=== PATIENT | male | born 1935 | race Caucasian/White ===

== ENCOUNTER 2017-05-21 17:58 | Emergency (ER) | payer MEDICARE ==
[~2017-05-21] VITALS: Wt 63.5 kg
--- NOTE | ~2017-05-21 | EKG ---
[place], [place] ELECTROCARDIOGRAM REPORT NAME: WILDER BERNARD JR UNIT #: [id number] ROOM: DOCTOR: SILVIA CHAVARRIA MD BIRTHDATE: [birth year] DOS: 05/21/2017 TIME: 1958 hours. FINDINGS: 1. Normal sinus rhythm at 68 beats per minute. 2. Consider left atrial abnormality. 3. Complete left bundle-branch block is likely. 4. Marked left axis deviation. 5. An abnormal ECG. 6. No previous tracing is available for comparison. SILVIA CHAVARRIA MD CM:EKGRPT:ELECTROCARDIOGRAM REPORT [id number] 1201 SILVIA CHAVARRIA MD
[2017-05-21] MEDS ORDERED: CELEXA20 MG PO (18:51)
[2017-05-21] MEDS ORDERED: AMIODARONE HYD200 MG PO (18:51)
[2017-05-21] MEDS ORDERED: LACTULOSE10 GM/154 PO (18:52)
[2017-05-21] MEDS ORDERED: VITAMIN D5000 UNI1 PO (18:52)
[2017-05-21] MEDS ORDERED: RIVASTIGMINE TAR3 M1 PO (18:52)
[2017-05-21] MEDS ORDERED: METOPROLOL SUCC25 M2 PO (18:53)
[2017-05-21] MEDS ORDERED: TYLENOL EXTRA500 MG PO (18:53)
[2017-05-21 19:45] LABS: BASO % 0.4 % (0.0-1.0); EOS # 0.1 10*3/uL (0.0-0.4); EOS % 0.9 % (1.0-4.0); HEMATOCRIT 42.8 % (42.0-52.0); HEMOGLOBIN 13.8 g/dl (14.0-18.0); LYMPH # 1.9 10*3/uL (1.3-4.4); LYMPH % 25.4 % (27.0-41.0); MEAN CELL VOLUME 102.4 fl (80.0-94.0); MEAN CORPUSCULAR HGB CONC 32.2 g/dl (33.0-37.0); MEAN PLATELET VOLUME 9.8 fl (9.6-12.3); MONO # 0.7 10*3/uL (0.1-1.0); MONO % 8.8 % (3.0-9.0); NEUT # 4.9 10*3/uL (2.3-7.9); NEUT % 64.4 % (47.0-73.0); PLATELET COUNT AUTOMATED 203 10*3/uL (130-400); RED BLOOD COUNT 4.18 10*6/uL (4.50-5.90); RED CELL DISTRI WIDTH 13.2 % (0-14.5); WHITE BLOOD COUNT 7.6 10*3/uL (4.8-10.8)
[2017-05-21 20:01] LABS: ALBUMIN 3.8 gm/dl (3.1-4.5); ALKALINE PHOSPHATASE 90 U/L (45-117); BUN 9 mg/dl (7-24); CHLORIDE 104 mmol/L (98-107); CREATININE 1.17 mg/dL (0.70-1.30); POTASSIUM 4.3 mmol/L (3.5-5.1); SGOT/AST 17 IU/L (3-35); SGPT/ALT 16 U/L (12-78); SODIUM 138 mmol/L (136-145); TOTAL PROTEIN 7.4 gm/dL (6.4-8.2)
[2017-05-21 20:06] LABS: ACETAMINOPHEN (TYLENOL) < 2.0 ug/ml (10-30)
[2017-05-21 20:14] LABS: ETHYL ALCOHOL < 3.0 mg/dl (<3)
[2017-05-21 21:10] LABS: BILIRUBIN NEGATIVE (NEGATIVE); BLOOD 1+ (NEGATIVE); CLARITY CLEAR (CLEAR); COLOR YELLOW (YELLOW); GLUCOSE NEGATIVE (NEGATIVE); KETONE NEGATIVE (NEGATIVE); LEUKO ESTERASE NEGATIVE (NEGATIVE); NITRITE NEGATIVE (NEGATIVE); UROBILINOGEN 0.2 E.U./dl (0.2-1.0)
[2017-05-21 21:16] LABS: BACTERIA TRACE
[2017-05-21 21:20] LABS: URINE AMPHETAMINES < 1000 (1000ng/ml); URINE BARBITURATES < 200 (200ng/ml); URINE BENZODIAZEPINES < 200 (200ng/ml); URINE CANNABINOIDS (THC) < 50 (50ng/ml); URINE COCAINE < 300 (300ng/ml); URINE METHADONE < 300 (300ng/ml); URINE OPIATES < 300 (300ng/ml)
[2017-05-21 21:25] LABS: URINE PHENCYCLIDINE < 25 (25ng/ml)
[2017-05-21] MEDS ORDERED: OXYGEN NAS (21:49)
== END 2017-05-21 22:23 | disposition home health service (06) ==
LOC: ED 17:58
PROVIDERS: Physician Assistant
DX: F23 Brief psychotic disorder (principal); F03.90 Unspecified dementia, unspecified severity, without behavioral disturbance, psychotic disturbance, mood disturbance, and anxiety; Z79.899 Other long term (current) drug therapy

== ENCOUNTER 2017-05-21 21:31 | Inpatient (IN) | payer MEDICARE ==
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
--- NOTE | ~2017-05-21 | PR ---
[place], [place] PROGRESS NOTE NAME: WILDER BERNARD JR UNIT #: [id number] ROOM: 316 DOCTOR: SANGITA BRYANT MD BIRTHDATE: [birth year] DOS: 05/23/2017 CHIEF COMPLAINT: "Are you the house detective." SUMMARY OF THE VISIT: The patient was interviewed as he was eating his breakfast in the dining area. He was very pleasant upon approach. He spoke at times nonsensical and rambled and other times, he was very clear. He was cooperative. Later, I went back when the lab techs were here to draw his blood and he cooperated pretty well with them as they attempted to draw blood. He was not agitated or aggressive this morning. He has tolerated the Invega well. MENTAL STATUS: He is alert and oriented to person, possibly place, although doubtful, certainly not time. Mood does seem to be more euthymic. Affect is more appropriate. There is no adina or hypomania. He does process extremely slowly and short term memory is extremely poor. PLAN: Given the fact that he is tolerating the Invega well, I will load with Invega Sustenna 234 mg IM now, reload with 156 mg on 05/26/2017, engage in individual and lazo milieu activity, returning to the least restrictive environment when psychiatrically stable. SANGITA BRYANT MD CM:PNTRANS SANGITA BRYANT MD 05/23/1747 interface
--- NOTE | ~2017-05-21 | PR ---
[place], [place] PROGRESS NOTE NAME: WILDER BERNARD JR [facility] #: [id number] UNIT #: [id number] ROOM: 316 DOCTOR: JOSELYN PORTER MD BIRTHDATE: [birth year] DOS: 05/25/2017 SUBJECTIVE: The patient seen and I spoke with the staff. Per staff, the patient is doing well. No behavioral problems or issues. He took his medication last night, slept well. No resistance in care. The patient was pleasant, cooperative. He was in the day area. He waved at me when he saw me. He reports doing well. He said that he is taking his medication regularly and did not have any side effect. He reports good sleep and appetite. He denied being depressed or sad. He wanted to go home. MENTAL STATUS EXAMINATION: The patient was pleasant and cooperative. Described his mood as "good." Affect, mood congruent. Thought process goal directed. No flight of ideas, loosening of association. He denied auditory or visual hallucination. No delusion or paranoia noted. He denied suicidal ideation, intent or plan. He also denied homicidal ideation, intent or plan. ASSESSMENT: Brief psychotic disorder. PLAN: 1. Continue current medication and care. 2. Encourage activity and groups. 3. Final medication management and discharge plan with the regular team. JOSELYN PORTER MD CM:PNTRANS 50 40 JOSELYN PORTER MD 05/25/172239 interface
--- NOTE | ~2017-05-21 | PR ---
[place], [place] PROGRESS NOTE NAME: [id number] UN[facility] #: [id number] ROOM: 316 DOCTOR: SANGITA BRYANT MD BIRTHDATE: [birth year] DOS: 05/26/2017 CHIEF COMPLAINT: "Oh there you are. I have not seen you for a while." SUMMARY OF THE VISIT: The patient was interviewed in the dining area where he sat eating breakfast. He stopped and engaged in conversation with me. He seemed to remember me and was joking with me that he had not seen me for some time. He did have tears, well up in his eyes when he talked about returning back to [place] and that how much he missed his family. Nurses report that he has been much more pleasant and compliant since his admission here and he has been taking his medicine and has been engaging more readily in group activities. He is tolerating the current medication regimen well and I see no sedation, somnolence, extrapyramidal symptoms or tardive dyskinesia. MENTAL STATUS: He is alert and oriented with significant time gaps. Mood does though seem to be trending towards euthymia and affect is much more appropriate. There is no adina or hypomania. There does not appear to be any gross psychosis at this point. Memory for the most part has gaps in short term, but long-term remains intact. PLAN: I will increase his Exelon patch from 4.6 mg daily to 9.5 mg daily in an effort to maximize potential benefits. He is to receive his Invega Sustenna injection with a secondary injection already scheduled and I will set him then for a maintenance dose on June 18 of 156 mg IM. We will engage in individual and lazo milieu activity, returning to the least restrictive environment when psychiatrically stable. SANIGTA BRYANT MD CM:PNTRANS 1 134 SANGITA BRYANT MD 05/26/17 1340 interface
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
--- NOTE | ~2017-05-21 | CON ---
[place], [place] REPORT OF CONSULTATION NAME: WILDRE AMBROSIO JR UNIT #: [id number] ROOM: 316 DOCTOR: JENNIFER CHAMBERS ED.D) BIRTHDATE: [birth year] DOS: HISTORY OF PRESENT ILLNESS: The patient is a 81-year-old male referred by Dr. Bryant for competency evaluation, date of this evaluation is 05/26/2017. At the present time, this patient is on the [facility] at [facility]. The patient actually could not tell me his age and stated he was 89 years old. He stated he is a and he has children, however, one is . I did speak to his one son, Edwin Ambrosio, regarding discharge plans for this patient. He is a retired dedicated local truck driver. He has been most recently at [facility] in [place], [place]. The family is planning on taking him home to stay with the family in the future. Prior to going to [facility], the patient was living independently with some difficulty. The family has been concerned about his memory for some time. This patient was awake, alert, and oriented to the fact that he is in the hospital. He had no idea where the hospital was. He did know, however, that it is 05/2017. Otherwise, he had a great deal of difficulty with his memory. It is clear that he is not competent to make informed healthcare decisions and apparently a civil commitment hearing is going to be held on the unit on 05/28/2017, I did complete an expert evaluation for competency for this patient when he is discharged. His family states they will probably file for guardianship in the immediate future. Again, he is clearly not competent to make informed healthcare decisions, although he was quite pleasantly confused. When he initially came to the hospital, he was extremely agitated and this is the way he was at [facility]. As he has become accustomed to the unit, his behavior has been much better, although he still has memory deficits. He is taking his medications and has agreed to shower and he has done so over the past several days. DIAGNOSIS: Major neurocognitive disorder -- Alzheimer disease. RECOMMENDATIONS: In my opinion, this patient is not competent to make informed healthcare decisions. Thank you very much for this consult. JENNIFER CHAMBERS ED.D CM:CONSTR:REPORT OF CONSULTATION 1640 05/26/17 2140 interface SANGITA BRYANT MD
--- NOTE | ~2017-05-21 | PR ---
[place], [place] PROGRESS NOTE [id number] UN[facility] #: [id number] ROOM: 316 DOCTOR: JOSELYN PORTER MD BIRTHDATE: [birth year] DOS: 05/24/2017 PSYCHIATRIC PROGRESS NOTE SUBJECTIVE: The patient is seen and spoke with the staff. Per staff, the patient is still aggressive and irritable at times, refuses medication at times also, not compliant with his medication fully. The patient was on his bed. He was irritable at first, but later on, became cooperative. He said that he is hungry and wanted to eat. When I asked him to get up from bed and come to the dining area, he got up and came to the dining area and started eating his breakfast . He was pleasant and cooperative afterwards. He said that he has been taking his medication and denied any side effect. MENTAL STATUS EXAMINATION: The patient was pleasant and cooperative, described his mood as "okay." Affect, mood congruent, broad range. He denied auditory or visual hallucination. No delusion or paranoia noted. He denied suicidal ideation, intent or plan. He also denied homicidal ideation, intent or plan. ASSESSMENT: Brief psychotic disorder. PLAN: 1. Continue current medications and care. 2. Encourage activities and groups. 3. Psychoeducation and coping skills. JOSELYN PORTER MD CM:PNTRANS 1848 JOSELYN PORTER MD 05/25/17 0134 interface
[~2017-05-21 21:31] MED LIST: AMIODARONE HYD200 MG PO; CELEXA20 MG PO; LACTULOSE10 GM/154 PO; METOPROLOL SUCC25 M2 PO; RIVASTIGMINE TAR3 M1 PO; TYLENOL EXTRA500 MG PO; VITAMIN D5000 UNI1 PO
[2017-05-21] MEDS ORDERED: OXYGEN NAS (21:49)
[2017-05-22 07:52] VITALS: BP 138/78
[2017-05-22 21:33] VITALS: BP 133/77
[2017-05-23 08:48] VITALS: BP 140/77
[2017-05-23 10:09] LABS: ALKALINE PHOSPHATASE 90 U/L (45-117); BUN 8 mg/dl (7-24); CHLORIDE 102 mmol/L (98-107); CHOLESTEROL 189 mg/dL (<200); CREATININE 1.07 mg/dL (0.70-1.30); HDL CHOLESTEROL 67 mg/dl (40-60); LDL CHOLESTEROL 107 mg/dL (9-159); POTASSIUM 3.9 mmol/L (3.5-5.1); SGOT/AST 14 IU/L (3-35); SGPT/ALT 16 U/L (12-78); SODIUM 134 mmol/L (136-145); TOTAL PROTEIN 7.6 gm/dL (6.4-8.2); TRIGLYCERIDES 76 mg/dl (<150); VLDL CHOLESTEROL 15 mg/dL (6-40)
[2017-05-23 10:14] LABS: VITAMIN D, 25-HYDROXY 30.3 ng/mL (30-100)
[2017-05-23 10:15] LABS: THYROID STIM HORMONE (HS) 0.933 uIU/ml (0.358-4.75)
[2017-05-23 20:00] VITALS: BP 150/60
[2017-05-24 08:37] VITALS: BP 149/68
[2017-05-24 20:00] VITALS: BP 124/60
[2017-05-25 07:54] VITALS: BP 122/62
[2017-05-25 20:00] VITALS: BP 112/64
[2017-05-26 08:03] VITALS: BP 149/79
[2017-05-26 20:00] VITALS: BP 127/68
[2017-05-27 07:55] VITALS: BP 123/64
[2017-05-27] MEDS ORDERED: LACTULOSE20 GM/30 M PO (09:19)
[2017-05-27] MEDS ORDERED: RISPERDAL M-TA0.5 MG BC (09:19)
[2017-05-27] MEDS ORDERED: RIVASTIGMINE1 EAC1 T (09:19)
== END 2017-05-27 14:14 | DRG 884 ==
LOC: 3N 21:31
PROVIDERS: Psychiatry & Neurology Psychiatry
DX: F02.81 Dementia in other diseases classified elsewhere, unspecified severity, with behavioral disturbance (principal); D53.9 Nutritional anemia, unspecified; G30.9 Alzheimer's disease, unspecified; I47.1 Supraventricular tachycardia; F23 Brief psychotic disorder; F63.81 Intermittent explosive disorder; I10 Essential (primary) hypertension; R41.9 Unspecified symptoms and signs involving cognitive functions and awareness; Z79.899 Other long term (current) drug therapy; Z66 Do not resuscitate; Z51.5 Encounter for palliative care

== ENCOUNTER 2018-01-16 12:40 | Inpatient (IN) | payer MEDICARE, MEDICAID ==
[~2018-01-16] VITALS: Ht 165.1 cm; Wt 55.3 kg
--- NOTE | ~2018-01-16 | WRIGHTHP ---
[place], [place] PATIENT HISTORY AND PHYSICAL EXAM NAME: WILDER BERNARD JR UNIT #: [id number] ROOM: 312 DOCTOR: SANGITA BRYANT MD BIRTHDATE: [birth year] DOS: 01/17/2018 INITIAL PSYCHIATRIC EVALUATION CHIEF COMPLAINT: "I am okay; can you turn my light off?" HISTORY OF PRESENT ILLNESS: This is an 82-year-old male who was sent here from [facility]. The patient had previously been here in May 2017. The patient had been increasingly agitated, paranoid and very agitated. He had been physically and verbally combative towards staff and other peers. The patient has been very paranoid and has not been taking his medication or eating well. His behavior has escalated over the last several weeks to the point where he is putting both himself and others at significant risk. Given this fact, it was felt that another inpatient stabilization was warranted and he was admitted to the [facility] to rule out organic factors, to attempt to re-stabilize on medication, to engage in individual and lazo milieu activity, returning then to the least restrictive environment when psychiatrically stable. PAST MEDICAL HISTORY: Remarkable for Alzheimer's dementia, hypertension, intermittent explosive disorder, osteoarthritis and supraventricular tachycardia. SOCIAL HISTORY: He does not drink alcohol, smoke cigarettes or use illicit drugs. STRENGTHS: Good verbal skills, ambulatory. WEAKNESSES: Cognitive decline, poor coping skills. MENTAL STATUS: The patient is alert and oriented to person, possibly place, not to time. Mood does seem to be rather depressed. There are anxious overtones and significant paranoia. He did not readily engage in conversation with me and was rather dismissive and minimizing all issues. There are no overt auditory or visual hallucinations noted. On evaluation, he does process information slowly and his responses tend to be short, simple. Short term memory remains problematic. PLAN: I will increase his Risperdal and change it to the M-Tab formulation to 1 mg b.i.d. We will continue to engage in individual and lazo milieu activity, returning then to the least restrictive environment when psychiatrically stable. [place], [place] PATIENT HISTORY AND PHYSICAL EXAM NAME: WILDER BERNARD JR UNIT #: [id number] ROOM: 312 DOCTOR: SANGITA BRYANT MD BIRTHDATE: [birth year] SANGITA BRYANT MD CM:HISPHYS:PATIENT HISTORY AND PHYSICAL EXAMINATION 7 7 SANGITA BRYANT MD 01/17/1826 interface
[~2018-01-16 12:40] MED LIST changes: +LACTULOSE20 GM/30 M PO; +OXYGEN NAS; +RISPERDAL M-TA0.5 MG BC; +RIVASTIGMINE1 EAC1 T
[2018-01-16] MEDS ORDERED: DIGOXIN125 MCG PO (13:11)
[2018-01-16] MEDS ORDERED: RIVASTIGMINE TAR6 M1 PO (13:13)
[2018-01-16] MEDS ORDERED: METOPROLOL SUCC25 M2 PO (13:13)
[2018-01-16] MEDS ORDERED: NAMENDA-28 PO (13:14)
[2018-01-16] MEDS ORDERED: ARTHRITIS PAIN650 M3 PO (13:18)
[2018-01-16] MEDS ORDERED: Diltiazem180 MG PO (13:21)
[2018-01-16 17:48] VITALS: BP 145/59
[2018-01-16 18:13] VITALS: BP 145/59
[2018-01-16 20:04] VITALS: BP 127/64
[2018-01-16] MEDS ORDERED: DIGOX125 MCG PO (22:12)
[2018-01-17 06:58] LABS: BASO % 0.3 % (0.0-1.0); EOS # 0.1 10*3/uL (0.0-0.4); HEMATOCRIT 39.6 % (42.0-52.0); HEMOGLOBIN 12.8 g/dl (14.0-18.0); LYMPH # 1.8 10*3/uL (1.3-4.4); LYMPH % 25.4 % (27.0-41.0); MEAN CELL VOLUME 95.7 fl (80.0-94.0); MEAN CORPUSCULAR HGB 30.9 pg (27.0-31.0); MEAN CORPUSCULAR HGB CONC 32.3 g/dl (33.0-37.0); MEAN PLATELET VOLUME 9.8 fl (9.6-12.3); MONO # 0.6 10*3/uL (0.1-1.0); MONO % 8.9 % (3.0-9.0); NEUT # 4.4 10*3/uL (2.3-7.9); NEUT % 63.1 % (47.0-73.0); PLATELET COUNT AUTOMATED 267 10*3/uL (130-400); RED BLOOD COUNT 4.14 10*6/uL (4.50-5.90); RED CELL DISTRI WIDTH 14.2 % (0-14.5)
[2018-01-17 07:22] VITALS: BP 136/69
[2018-01-17 07:23] LABS: ALBUMIN 3.5 gm/dl (3.1-4.5); ALKALINE PHOSPHATASE 73 U/L (45-117); BUN 20 mg/dl (7-24); CHLORIDE 109 mmol/L (98-107); CHOLESTEROL 156 mg/dL (<200); CREATININE 1.02 mg/dL (0.70-1.30); FREE T4 1.01 ng/dl (0.76-1.46); HDL CHOLESTEROL 75 mg/dl (40-60); LDL CHOLESTEROL 65 mg/dL (9-159); SGOT/AST 10 IU/L (3-35); SGPT/ALT 15 U/L (12-78); SODIUM 143 mmol/L (136-145); TOTAL PROTEIN 7.1 gm/dL (6.4-8.2); TRIGLYCERIDES 80 mg/dl (<150); VLDL CHOLESTEROL 16 mg/dL (6-40)
[2018-01-17 09:38] LABS: VITAMIN D, 25-HYDROXY 23.7 ng/mL (30-100)
[2018-01-17 19:29] VITALS: BP 128/70
[2018-01-18 07:14] VITALS: BP 146/72
[2018-01-18] MEDS ORDERED: RISPERIDONE1 M1 PO (13:15)
[2018-01-18] MEDS ORDERED: NAMENDA10 MG PO (13:19)
[2018-01-21] MEDS ORDERED: LEVAQUIN750 M1 PO (13:01)
== END 2018-01-18 12:20 | disposition short-term general hospital (02) | DRG 885 ==
LOC: 3N 12:40
PROVIDERS: Psychiatry & Neurology Psychiatry; Registered Nurse
DX: F23 Brief psychotic disorder (principal); I47.1 Supraventricular tachycardia; D53.9 Nutritional anemia, unspecified; R73.9 Hyperglycemia, unspecified; E83.41 Hypermagnesemia; I10 Essential (primary) hypertension; R31.9 Hematuria, unspecified; M19.91 Primary osteoarthritis, unspecified site; F63.81 Intermittent explosive disorder; G30.9 Alzheimer's disease, unspecified; F02.80 Dementia in other diseases classified elsewhere, unspecified severity, without behavioral disturbance, psychotic disturbance, mood disturbance, and anxiety; F17.210 Nicotine dependence, cigarettes, uncomplicated; F22 Delusional disorders; Z79.899 Other long term (current) drug therapy

== ENCOUNTER 2018-01-16 15:32 | Emergency (ER) | payer MEDICARE, MEDICAID ==
--- NOTE | ~2018-01-16 | EKG ---
[place], [place] ELECTROCARDIOGRAM REPORT NAME: WILDER BERNARD JR UNIT #: [id number] ROOM: DOCTOR: CHEY DRAFT REPORT BIRTHDATE: [birth year] [facility] Test Date: 2018-01-16 Test Time: 15:53:05 Pat Name: WILDER BERNARD Department: Room: Gender: Final Inspector Paper: EKG.AL : 1935 Requested By: MARY BOWSER Order Number: [id number] Reading MD: Measurements Intervals [place] Rate: 62 P: 61 NE: 143 QRS: -60 QRSD: 114 T: -89 QT: 412 QTc: 419 Interpretive Statements Sinus rhythm Atrial premature complex Probable left atrial enlargement Incomplete left bundle branch block No previous ECG available for comparison CM:EKGRPT:ELECTROCARDIOGRAM REPORT 1553 1255 MARY GUERRIER DRAFT REPORT MARY BOWSER MD
[~2018-01-16 15:32] MED LIST changes: +ARTHRITIS PAIN650 M3 PO; +DIGOXIN125 MCG PO; +Diltiazem180 MG PO; +NAMENDA-28 PO; +RIVASTIGMINE TAR6 M1 PO
[2018-01-16 15:54] LABS: BILIRUBIN NEGATIVE (NEGATIVE); BLOOD 1+ (NEGATIVE); CLARITY CLEAR (CLEAR); COLOR YELLOW (YELLOW); GLUCOSE NEGATIVE (NEGATIVE); KETONE NEGATIVE (NEGATIVE); LEUKO ESTERASE NEGATIVE (NEGATIVE); NITRITE NEGATIVE (NEGATIVE); UROBILINOGEN 0.2 E.U./dl (0.2-1.0)
[2018-01-16 15:58] LABS: BASO % 0.4 % (0.0-1.0); EOS # 0.2 10*3/uL (0.0-0.4); EOS % 1.9 % (1.0-4.0); HEMATOCRIT 41.7 % (42.0-52.0); HEMOGLOBIN 13.7 g/dl (14.0-18.0); LYMPH # 1.6 10*3/uL (1.3-4.4); LYMPH % 20.7 % (27.0-41.0); MEAN CELL VOLUME 96.1 fl (80.0-94.0); MEAN CORPUSCULAR HGB 31.6 pg (27.0-31.0); MEAN CORPUSCULAR HGB CONC 32.9 g/dl (33.0-37.0); MEAN PLATELET VOLUME 9.3 fl (9.6-12.3); MONO # 0.8 10*3/uL (0.1-1.0); MONO % 9.9 % (3.0-9.0); NEUT # 5.3 10*3/uL (2.3-7.9); NEUT % 66.7 % (47.0-73.0); PLATELET COUNT AUTOMATED 269 10*3/uL (130-400); RED BLOOD COUNT 4.34 10*6/uL (4.50-5.90); RED CELL DISTRI WIDTH 14.3 % (0-14.5); WHITE BLOOD COUNT 7.9 10*3/uL (4.8-10.8)
[2018-01-16 16:03] LABS: BACTERIA TRACE; EPITHELIAL CELLS 0-2; URINE AMPHETAMINES < 1000 (1000ng/ml); URINE BARBITURATES < 200 (200ng/ml); URINE BENZODIAZEPINES < 200 (200ng/ml); URINE CANNABINOIDS (THC) < 50 (50ng/ml); URINE COCAINE < 300 (300ng/ml); URINE METHADONE < 300 (300ng/ml); URINE OPIATES < 300 (300ng/ml); WBC 0-2 wbc/hpf (0-5)
[2018-01-16 16:05] LABS: URINE PHENCYCLIDINE < 25 (25ng/ml)
[2018-01-16 16:06] LABS: ACT PARTIAL THROMBO TIME 24.9 SECONDS (20.8-31.5); INTERNATIONAL NORM RATIO 0.9 (2.0-3.5)
[2018-01-16 16:17] LABS: ALBUMIN 3.7 gm/dl (3.1-4.5); ALKALINE PHOSPHATASE 82 U/L (45-117); BUN 25 mg/dl (7-24); CHLORIDE 107 mmol/L (98-107); CREATININE 1.18 mg/dL (0.70-1.30); POTASSIUM 4.2 mmol/L (3.5-5.1); SGOT/AST 15 IU/L (3-35); SGPT/ALT 18 U/L (12-78); SODIUM 141 mmol/L (136-145); TOTAL PROTEIN 7.5 gm/dL (6.4-8.2)
[2018-01-16 16:26] LABS: THYROID STIM HORMONE (HS) 0.212 uIU/ml (0.358-4.75)
[2018-01-16] MEDS ORDERED: DIGOX125 MCG PO (22:12)
[2018-01-18] MEDS ORDERED: RISPERIDONE1 M1 PO (13:15)
[2018-01-18] MEDS ORDERED: NAMENDA10 MG PO (13:19)
[2018-01-21] MEDS ORDERED: LEVAQUIN750 M1 PO (13:01)
== END 2018-01-17 00:47 | disposition admitted as inpatient to this hospital (09) ==
LOC: ED 15:32
PROVIDERS: Emergency Medicine
DX: F23 Brief psychotic disorder (principal); F03.90 Unspecified dementia, unspecified severity, without behavioral disturbance, psychotic disturbance, mood disturbance, and anxiety; I10 Essential (primary) hypertension; R79.1 Abnormal coagulation profile; Z79.899 Other long term (current) drug therapy